=== PATIENT | female | born 1945 | race Caucasian/White ===

== ENCOUNTER 2022-11-09 20:05 | Inpatient (IN) | payer OTHER ==
[~2022-11-09] VITALS: Ht 165.1 cm; Wt 68.0 kg
[2022-11-09 20:26] VITALS: BP_SYST 205
[2022-11-09] MEDS ORDERED: HYDROcodone/ACETAMIN 5-325 MG TAB (NORCO/ VICODIN) PO ONE (21:15)
[2022-11-09 21:56] LABS: BASOPHILS # (AUTO) 0.1 K/uL (0.0-0.2); BASOPHILS % (AUTO) 0.5 % (0.0-2.0); EOSINOPHILS # (AUTO) 0.1 K/uL (0.0-0.4); EOSINOPHILS % (AUTO) 0.7 % (0.0-4.0); HEMOGLOBIN 13.2 g/dL (12.0-16.0); LYMPHOCYTES # (AUTO) 2.1 K/uL (1.0-5.5); LYMPHOCYTES % (AUTO) 15.3 % (20.5-51.5); MEAN CORPUSCULAR HEMOGLOBIN 31 pg (27-31); MEAN CORPUSCULAR HGB CONC 34 % (32-36); MEAN CORPUSCULAR VOLUME 92 fL (79.0-98.0); MONOCYTES # (AUTO) 0.8 K/uL (0.0-1.0); MONOCYTES % (AUTO) 5.8 % (1.7-9.3); NEUTROPHILS # (AUTO) 10.7 K/uL (1.8-7.7); NEUTROPHILS % (AUTO) 77.7 % (40.0-70.0); PLATELET COUNT (AUTO) 179 K/uL (130-430); RED BLOOD CELL COUNT(AUTO) 4.26 MIL/uL (4.2-6.2); RED CELL DISTRIBUTION WIDTH 12.2 % (9.0-15.0); WHITE BLOOD COUNT (AUTO) 13.8 K/uL (4.8-10.8)
[2022-11-09 22:08] LABS: ANION GAP 6 (5-15); CALCIUM 8.8 mg/dL (8.4-11.0); CHLORIDE 101 mmol/L (98-107); GLUCOSE 160 mg/dL (70-99); UREA NITROGEN, BLOOD 34 mg/dL (8-21)
[2022-11-09 22:27] LABS: ALANINE AMINOTRANSFERASE 25 U/L (12-78); ASPARTATE AMINOTRANSFERASE 26 U/L (10-37); TOTAL BILIRUBIN 0.5 mg/dL (0.0-1.0)
[2022-11-09] MEDS ORDERED: MORPHINE 4 MG INJ. 4 MG/ML VIAL IM ONE (23:30)
[2022-11-10] VITALS (8 sets, daily range): BP systolic 107–177
[2022-11-10] MEDS: HYDROcodone/ACETAMIN 5-325 MG TAB (NORCO/ VICODIN) PO PRN ×3 (04:58→18:34)
[2022-11-10 06:06] LABS: BASOPHILS % (AUTO) 0.3 % (0.0-2.0); EOSINOPHILS % (AUTO) 0.1 % (0.0-4.0); HEMATOCRIT 36.3 % (36-48); HEMOGLOBIN 12.4 g/dL (12.0-16.0); LYMPHOCYTES # (AUTO) 1.6 K/uL (1.0-5.5); LYMPHOCYTES % (AUTO) 18.3 % (20.5-51.5); MEAN CORPUSCULAR HEMOGLOBIN 31 pg (27-31); MEAN CORPUSCULAR HGB CONC 34 % (32-36); MEAN CORPUSCULAR VOLUME 92 fL (79.0-98.0); MONOCYTES # (AUTO) 0.6 K/uL (0.0-1.0); MONOCYTES % (AUTO) 6.6 % (1.7-9.3); NEUTROPHILS # (AUTO) 6.6 K/uL (1.8-7.7); NEUTROPHILS % (AUTO) 74.7 % (40.0-70.0); PLATELET COUNT (AUTO) 160 K/uL (130-430); RED BLOOD CELL COUNT(AUTO) 3.94 MIL/uL (4.2-6.2); RED CELL DISTRIBUTION WIDTH 12.1 % (9.0-15.0); WHITE BLOOD COUNT (AUTO) 8.8 K/uL (4.8-10.8)
[2022-11-10 06:48] LABS: ALANINE AMINOTRANSFERASE 22 U/L (12-78); ALBUMIN 3.6 g/dL (3.4-4.8); ANION GAP 9 (5-15); ASPARTATE AMINOTRANSFERASE 31 U/L (10-37); CALCIUM 8.5 mg/dL (8.4-11.0); CHLORIDE 101 mmol/L (98-107); CREATININE 1.41 mg/dL (0.55-1.30); GLUCOSE 143 mg/dL (70-99); TOTAL BILIRUBIN 0.6 mg/dL (0.0-1.0); UREA NITROGEN, BLOOD 34 mg/dL (8-21)
[2022-11-10] MEDS ORDERED: ASPI-1155 PO (15:14)
[2022-11-10] MEDS ORDERED: ZOLP5TAB2 PO (15:14)
[2022-11-10] MEDS ORDERED: LOZ1.25 PO (15:14)
[2022-11-10] MEDS ORDERED: LEVO88CA4 PO (15:14)
[2022-11-10] MEDS ORDERED: GLUC-160 PO (15:14)
[2022-11-10] MEDS ORDERED: FISH1CAP16 PO (15:14)
[2022-11-10] MEDS ORDERED: ATEN50TA PO (15:14)
[2022-11-10] MEDS ORDERED: MULT-1159 PO (15:14)
[2022-11-10] MEDS ORDERED: METF-379 PO (15:14)
[2022-11-10] MEDS ORDERED: ROSU10TA2 PO (15:14)
[2022-11-10] MEDS ORDERED: LOSA100T4 PO (15:14)
[2022-11-10] MEDS ORDERED: NEU300 PO (15:14)
[2022-11-10] MEDS ORDERED: ZOLPIDEM TARTRATE 5 MG TABLET PO PRN (15:30)
[2022-11-10] MEDS ORDERED: KETOROLAC TROMETHAMINE 15 MG VIAL IVP ONE (20:45)
[2022-11-10] MEDS ORDERED: ONDANSETRON HCL 4 MG/2 ML VIAL IVP PRN (20:45)
[2022-11-10] MEDS: GABAPENTIN 300 MG CAPSULE PO SCH (20:46)
[2022-11-10] MEDS: metFORMIN HCL 500 MG TABLET PO SCH (20:46)
[2022-11-10] MEDS: ATENOLOL 50 MG TABLET (TENORMIN) PO SCH (20:46)
[2022-11-10] MEDS ORDERED: *HEPARIN PER PHARMACY XX ONE (23:30)
[2022-11-11 00:26] LABS: PROTHROMBIN TIME 10.4 SECS (9.5-12.5)
[2022-11-11] MEDS ORDERED: HEPARIN SODIUM,PORCINE 3000 UNITS/0.6 ML BOLUS IVP PRN (00:30)
[2022-11-11] MEDS ORDERED: HEPARIN SODIUM, PORCINE 10,000 UNITS/ 10 ML VIAL IV ONE (00:30)
[2022-11-11] MEDS ORDERED: HEPARIN SODIUM,PORCINE 2000 UNITS/0.4 ML BOLUS IVP PRN (00:30)
[2022-11-11] MEDS: HEPARIN 25,000 UNITS in 250 ML PREMIX IV PRN ×5 (01:27→17:41)
[2022-11-11] MEDS: HYDROcodone/ACETAMIN 5-325 MG TAB (NORCO/ VICODIN) PO PRN ×3 (03:27→15:03)
[2022-11-11 06:31] LABS: BASOPHILS % (AUTO) 0.4 % (0.0-2.0); EOSINOPHILS # (AUTO) 0.1 K/uL (0.0-0.4); EOSINOPHILS % (AUTO) 1.9 % (0.0-4.0); HEMATOCRIT 35.9 % (36-48); HEMOGLOBIN 12.3 g/dL (12.0-16.0); LYMPHOCYTES # (AUTO) 1.8 K/uL (1.0-5.5); LYMPHOCYTES % (AUTO) 27.6 % (20.5-51.5); MEAN CORPUSCULAR HEMOGLOBIN 31 pg (27-31); MEAN CORPUSCULAR HGB CONC 34 % (32-36); MEAN CORPUSCULAR VOLUME 92 fL (79.0-98.0); MONOCYTES # (AUTO) 0.7 K/uL (0.0-1.0); MONOCYTES % (AUTO) 11.1 % (1.7-9.3); PLATELET COUNT (AUTO) 149 K/uL (130-430); RED CELL DISTRIBUTION WIDTH 12.1 % (9.0-15.0); WHITE BLOOD COUNT (AUTO) 6.7 K/uL (4.8-10.8)
[2022-11-11 06:45] LABS: ANION GAP 8 (5-15); CALCIUM 8.4 mg/dL (8.4-11.0); CHLORIDE 100 mmol/L (98-107); CREATININE 1.39 mg/dL (0.55-1.30); GLUCOSE 112 mg/dL (70-99); UREA NITROGEN, BLOOD 36 mg/dL (8-21)
[2022-11-11 08:00] VITALS: BP_SYST 123
[2022-11-11] MEDS: metFORMIN HCL 500 MG TABLET PO SCH ×2 (08:35→21:45)
[2022-11-11] MEDS: GABAPENTIN 300 MG CAPSULE PO SCH ×2 (08:35→21:43)
[2022-11-11] MEDS: ATORVASTATIN 20 MG TABLET PO SCH (08:35)
[2022-11-11] MEDS: LOSARTAN POTASSIUM 50 MG TABLET (COZAAR) PO SCH (08:36)
[2022-11-11] MEDS: ATENOLOL 50 MG TABLET (TENORMIN) PO SCH ×2 (08:36→21:44)
[2022-11-11] MEDS: MULTIVITS,CA,MINERALS/IRON/FA 1 TABLET PO SCH (08:36)
[2022-11-11] MEDS: LEVOTHYROXINE SODIUM 0.088 MG TABLET PO SCH (08:38)
[2022-11-11] MEDS: INDAPAMIDE 1.25 MG TABLET PO SCH (09:06)
[2022-11-11 12:00] VITALS: BP_SYST 129
[2022-11-11] MEDS ORDERED: SODIUM ZIRCONIUM CYCLOSILICATE 10 GM POWD.PACK PO ONE (12:00)
[2022-11-11 16:00] VITALS: BP_SYST 119
[2022-11-11] MEDS ORDERED: LIDOCAINE PATCH 5% 1 EA TP ONE (16:30)
[2022-11-11 20:30] VITALS: BP_SYST 123
[2022-11-12 00:09] VITALS: BP_SYST 112
[2022-11-12] MEDS: HEPARIN 25,000 UNITS in 250 ML PREMIX IV PRN (05:54)
[2022-11-12] MEDS: HYDROcodone/ACETAMIN 5-325 MG TAB (NORCO/ VICODIN) PO PRN ×3 (06:04→19:49)
[2022-11-12 07:22] LABS: BASOPHILS # (AUTO) 0.1 K/uL (0.0-0.2); BASOPHILS % (AUTO) 0.8 % (0.0-2.0); EOSINOPHILS # (AUTO) 0.2 K/uL (0.0-0.4); EOSINOPHILS % (AUTO) 3.2 % (0.0-4.0); HEMATOCRIT 34.3 % (36-48); HEMOGLOBIN 11.8 g/dL (12.0-16.0); LYMPHOCYTES # (AUTO) 1.7 K/uL (1.0-5.5); LYMPHOCYTES % (AUTO) 27.8 % (20.5-51.5); MEAN CORPUSCULAR HEMOGLOBIN 31 pg (27-31); MEAN CORPUSCULAR HGB CONC 34 % (32-36); MEAN CORPUSCULAR VOLUME 91 fL (79.0-98.0); MONOCYTES # (AUTO) 0.7 K/uL (0.0-1.0); MONOCYTES % (AUTO) 10.7 % (1.7-9.3); NEUTROPHILS # (AUTO) 3.6 K/uL (1.8-7.7); NEUTROPHILS % (AUTO) 57.5 % (40.0-70.0); PLATELET COUNT (AUTO) 149 K/uL (130-430); RED BLOOD CELL COUNT(AUTO) 3.76 MIL/uL (4.2-6.2); WHITE BLOOD COUNT (AUTO) 6.3 K/uL (4.8-10.8)
[2022-11-12 07:37] LABS: ALANINE AMINOTRANSFERASE 22 U/L (12-78); ALBUMIN 3.1 g/dL (3.4-4.8); ANION GAP 8 (5-15); ASPARTATE AMINOTRANSFERASE 32 U/L (10-37); CALCIUM 8.3 mg/dL (8.4-11.0); CHLORIDE 101 mmol/L (98-107); CREATININE 1.32 mg/dL (0.55-1.30); GLUCOSE 113 mg/dL (70-99); TOTAL BILIRUBIN 0.5 mg/dL (0.0-1.0); UREA NITROGEN, BLOOD 37 mg/dL (8-21)
[2022-11-12 08:00] VITALS: BP_SYST 91
[2022-11-12] MEDS: metFORMIN HCL 500 MG TABLET PO SCH ×2 (08:49→20:49)
[2022-11-12] MEDS: GABAPENTIN 300 MG CAPSULE PO SCH ×2 (08:49→20:49)
[2022-11-12] MEDS: ATORVASTATIN 20 MG TABLET PO SCH (08:50)
[2022-11-12] MEDS: LOSARTAN POTASSIUM 50 MG TABLET (COZAAR) PO SCH (08:55)
[2022-11-12] MEDS: MULTIVITS,CA,MINERALS/IRON/FA 1 TABLET PO SCH (08:55)
[2022-11-12] MEDS: LEVOTHYROXINE SODIUM 0.088 MG TABLET PO SCH (08:56)
[2022-11-12] MEDS: INDAPAMIDE 1.25 MG TABLET PO SCH (08:56)
[2022-11-12] MEDS: ATENOLOL 50 MG TABLET (TENORMIN) PO SCH ×2 (08:57→20:49)
[2022-11-12] MEDS: LIDOCAINE PATCH 5% 1 EA TP SCH (08:58)
[2022-11-12 12:00] VITALS: BP_SYST 98
[2022-11-12 19:50] VITALS: BP_SYST 136
[2022-11-13 00:17] VITALS: BP_SYST 135
[2022-11-13] MEDS: HYDROcodone/ACETAMIN 5-325 MG TAB (NORCO/ VICODIN) PO PRN ×3 (04:23→19:19)
[2022-11-13 05:47] LABS: BASOPHILS % (AUTO) 0.6 % (0.0-2.0); EOSINOPHILS # (AUTO) 0.2 K/uL (0.0-0.4); EOSINOPHILS % (AUTO) 2.6 % (0.0-4.0); HEMATOCRIT 33.4 % (36-48); HEMOGLOBIN 11.3 g/dL (12.0-16.0); LYMPHOCYTES # (AUTO) 2.2 K/uL (1.0-5.5); LYMPHOCYTES % (AUTO) 34.8 % (20.5-51.5); MEAN CORPUSCULAR HEMOGLOBIN 31 pg (27-31); MEAN CORPUSCULAR HGB CONC 34 % (32-36); MEAN CORPUSCULAR VOLUME 92 fL (79.0-98.0); MONOCYTES # (AUTO) 0.7 K/uL (0.0-1.0); MONOCYTES % (AUTO) 10.9 % (1.7-9.3); NEUTROPHILS # (AUTO) 3.3 K/uL (1.8-7.7); NEUTROPHILS % (AUTO) 51.1 % (40.0-70.0); PLATELET COUNT (AUTO) 144 K/uL (130-430); RED BLOOD CELL COUNT(AUTO) 3.64 MIL/uL (4.2-6.2); RED CELL DISTRIBUTION WIDTH 12.1 % (9.0-15.0); WHITE BLOOD COUNT (AUTO) 6.4 K/uL (4.8-10.8)
[2022-11-13 06:12] LABS: ANION GAP 5 (5-15); CALCIUM 8.1 mg/dL (8.4-11.0); CHLORIDE 101 mmol/L (98-107); CREATININE 1.25 mg/dL (0.55-1.30); GLUCOSE 114 mg/dL (70-99); UREA NITROGEN, BLOOD 33 mg/dL (8-21)
[2022-11-13 08:08] VITALS: BP_SYST 129
[2022-11-13] MEDS: LIDOCAINE PATCH 5% 1 EA TP SCH (09:03)
[2022-11-13] MEDS: ATORVASTATIN 20 MG TABLET PO SCH (09:03)
[2022-11-13] MEDS: MULTIVITS,CA,MINERALS/IRON/FA 1 TABLET PO SCH (09:04)
[2022-11-13] MEDS: GABAPENTIN 300 MG CAPSULE PO SCH ×2 (09:04→20:32)
[2022-11-13] MEDS: ATENOLOL 50 MG TABLET (TENORMIN) PO SCH ×2 (09:04→20:34)
[2022-11-13] MEDS: MORPHINE 2 MG/ML INJ. SYRINGE IVP PRN ×3 (09:07→22:12)
[2022-11-13] MEDS: metFORMIN HCL 500 MG TABLET PO SCH ×2 (09:09→20:32)
[2022-11-13] MEDS: LOSARTAN POTASSIUM 50 MG TABLET (COZAAR) PO SCH (09:10)
[2022-11-13] MEDS: LEVOTHYROXINE SODIUM 0.088 MG TABLET PO SCH (09:12)
[2022-11-13] MEDS: HEPARIN 25,000 UNITS in 250 ML PREMIX IV PRN (10:24)
[2022-11-13 12:30] VITALS: BP_SYST 114
[2022-11-13 16:45] VITALS: BP_SYST 129
[2022-11-13] MEDS ORDERED: CLOPIDOGREL BISULFATE 75 MG TABLET PO ONE (16:45)
[2022-11-13 20:00] VITALS: BP_SYST 105
[2022-11-14] VITALS: BP_SYST 133
[2022-11-14] MEDS: HYDROcodone/ACETAMIN 5-325 MG TAB (NORCO/ VICODIN) PO PRN ×2 (06:39→12:45)
[2022-11-14 07:10] LABS: BASOPHILS % (AUTO) 0.8 % (0.0-2.0); EOSINOPHILS # (AUTO) 0.2 K/uL (0.0-0.4); EOSINOPHILS % (AUTO) 3.5 % (0.0-4.0); HEMATOCRIT 33.2 % (36-48); HEMOGLOBIN 11.4 g/dL (12.0-16.0); LYMPHOCYTES # (AUTO) 1.8 K/uL (1.0-5.5); MEAN CORPUSCULAR HEMOGLOBIN 32 pg (27-31); MEAN CORPUSCULAR HGB CONC 34 % (32-36); MEAN CORPUSCULAR VOLUME 92 fL (79.0-98.0); MONOCYTES # (AUTO) 0.7 K/uL (0.0-1.0); MONOCYTES % (AUTO) 11.9 % (1.7-9.3); NEUTROPHILS # (AUTO) 3.2 K/uL (1.8-7.7); NEUTROPHILS % (AUTO) 53.8 % (40.0-70.0); PLATELET COUNT (AUTO) 164 K/uL (130-430); RED CELL DISTRIBUTION WIDTH 12.2 % (9.0-15.0)
[2022-11-14 08:00] VITALS: BP_SYST 118
[2022-11-14 08:01] LABS: ANION GAP 10 (5-15); CALCIUM 8.7 mg/dL (8.4-11.0); CHLORIDE 100 mmol/L (98-107); CREATININE 1.43 mg/dL (0.55-1.30); GLUCOSE 110 mg/dL (70-99); UREA NITROGEN, BLOOD 35 mg/dL (8-21)
[2022-11-14] MEDS: ATENOLOL 50 MG TABLET (TENORMIN) PO SCH (08:28)
[2022-11-14] MEDS: metFORMIN HCL 500 MG TABLET PO SCH (08:29)
[2022-11-14] MEDS: MULTIVITS,CA,MINERALS/IRON/FA 1 TABLET PO SCH (08:29)
[2022-11-14] MEDS: LOSARTAN POTASSIUM 50 MG TABLET (COZAAR) PO SCH (08:31)
[2022-11-14] MEDS: ATORVASTATIN 20 MG TABLET PO SCH (08:31)
[2022-11-14] MEDS: LEVOTHYROXINE SODIUM 0.088 MG TABLET PO SCH (08:32)
[2022-11-14] MEDS: GABAPENTIN 300 MG CAPSULE PO SCH (08:32)
[2022-11-14] MEDS: LIDOCAINE PATCH 5% 1 EA TP SCH (08:37)
[2022-11-14] MEDS ORDERED: CLOPIDOGREL BISULFATE 75 MG TABLET PO SCH (09:00)
[2022-11-14 11:42] VITALS: BP_SYST 129
[2022-11-14 12:02] VITALS: BP_SYST 129
[2022-11-14] MEDS ORDERED: HYDR-3917 PO (12:20)
[2022-11-14] MEDS ORDERED: IBUP-1970 PO (12:30)
[2022-11-14] MEDS ORDERED: CLOP75TA32 PO (13:11)
== END 2022-11-14 13:30 | disposition home or self-care (01) | DRG 280 ==
LOC: SED 20:05 → OBSVTOIN 11-10 01:01 → STU 11-10 01:01 → SMU 11-14 10:50
PROVIDERS: ADMIT Family Medicine; ATTEND Family Medicine
DX: I21.4 Non-ST elevation (NSTEMI) myocardial infarction (principal); N17.0 Acute kidney failure with tubular necrosis; S26.91XA Contusion of heart, unspecified with or without hemopericardium, initial encounter; I25.110 Atherosclerotic heart disease of native coronary artery with unstable angina pectoris; S29.9XXA Unspecified injury of thorax, initial encounter; I10 Essential (primary) hypertension; E11.9 Type 2 diabetes mellitus without complications; V89.2XXA Person injured in unspecified motor-vehicle accident, traffic, initial encounter; Y93.89 Activity, other specified; Y92.89 Other specified places as the place of occurrence of the external cause; Y99.8 Other external cause status
CPT/HCPCS: 36415; 71045; 71100; 73030; 80048; 80053; 84132; 84484; 85025; 85610-TC; 85730-TC; 93005; 93306; 96372; 99285; G0378; J1644; J1885; J2270